=== PATIENT | male | born 1960 | race Caucasian/White ===

== ENCOUNTER → 2016-07-16 | Outpatient (CLI) | payer BC ==
[~2016-07-16] MED LIST: ATOR10TA65 PO; DOCU-144 PO; HYDR-905 PO; PANT40TA4 PO; ULT50 PO; VALS1TAB82 PO
--- NOTE | 2016-07-16 11:45 | RADRPT ---
PROCEDURE: XR pelvis/right hip. CLINICAL INDICATION: Hip pain TECHNIQUE: AP pelvis/lateral right hip view available for review. COMPARISON: 06/18/2016 FINDINGS: There is a right total hip replacement. There is no evidence of loosening of the prosthesis. There is moderate left hip osteoarthrosis. This is associated with joint space narrowing, subchondra l sclerosis, subchondral cyst formation and osteophytosis. There is normal osseous mineralization. N o fractures or osseous lesions are identified. The soft tissues are unremarkable. IMPRESSION: Right total hip replacement. Moderate left hip osteoarthrosis. RPTAT: [facility] .Samson Armstrong MD, MD Date Time Electronically viewed and signed by .Samson Armstrong MD, MD on 07/16/2016 11:44 .B/
== END | disposition home or self-care (01) ==
LOC: HKI 10:18
PROVIDERS: ATTEND Orthopaedic Surgery
DX: Z47.1 Aftercare following joint replacement surgery (principal); M16.11 Unilateral primary osteoarthritis, right hip; Z96.641 Presence of right artificial hip joint
CPT/HCPCS: 73502; G0463

== ENCOUNTER → 2016-09-01 | Outpatient (CLI) | payer BC ==
[~2016-09-01] MED LIST changes: +TRAM50TA2 PO; -ULT50 PO
--- NOTE | 2016-09-01 11:58 | RADRPT ---
PROCEDURE: XR pelvis/right hip. CLINICAL INDICATION: Hip pain TECHNIQUE: AP pelvis/AP and lateral right hip views performed. COMPARISON: 07/16/2016 FINDINGS: There is a right total hip replacement. There is no evidence of loosening of the prosthesis. There is moderate left hip osteoarthrosis. This is associated with joint space narrowing, subchondra l sclerosis and osteophytosis. There is normal osseous mineralization. No fractures or osseous les ions are identified. The soft tissues are unremarkable. IMPRESSION: Right total hip replacement. Moderate left hip osteoarthrosis. RPTAT: [facility] .Samson Armstrong MD, Date Time Electronically viewed and signed by .Samson Armstrong MD, on 09/01/2016 11:57 .B/
== END | disposition home or self-care (01) ==
LOC: HKI 10:03
PROVIDERS: ATTEND Orthopaedic Surgery
DX: Z47.1 Aftercare following joint replacement surgery (principal); Z96.641 Presence of right artificial hip joint
CPT/HCPCS: 73502; G0463